=== PATIENT | female | born 1995 | race Caucasian/White ===

== ENCOUNTER 2018-03-18 15:20 | Outpatient (CLI) | payer BC ==
[~2018-03-18 15:20] MED LIST: Gadobenate Dimeglumine 529 MG/1 ML (20ML VIAL) ONE
--- NOTE | 2018-03-18 19:02 | MRI ---
PRE AND POSTCONTRAST ENHANCED MRI IMAGES OF THE BRAIN: 03/18/18 HISTORY: Convulsions, R56.9. Multiplanar and multisequence pre and postcontrast enhanced MRI images of the brain obtained. No evidence of intracranial masses, hemorrhages, strokes or contusion seen. Ventricles are of normal size. No abnormal areas of intracranial masses or abnormalities seen. No evidence of areas of diffusi on restriction seen. No evidence of abnormal areas of intracranial enhancement seen. The yusuf-white m atter is unremarkable. The temporal lobes are unremarkable. No definite evidence of mesiotemporal sclerosis seen. The ventricles are of normal size. IMPRESSION: Unremarkable pre and postcontrast enhanced MRI images of the brain. POS: [facility]
== END 2018-03-18 15:21 | disposition home or self-care (01) ==
LOC: SCSMRI 15:20
PROVIDERS: ATTEND Psychiatry & Neurology Neurology
DX: R56.9 Unspecified convulsions (principal)
CPT/HCPCS: 70553; A9579